=== PATIENT | female | born 1945 | race African-American/Black ===

== ENCOUNTER → 2018-05-06 | Outpatient (CLI) | payer MEDICARE ==
--- NOTE | 2018-05-06 17:02 | BD ---
EXAMINATION TYPE: Axial Bone Density DATE OF EXAM: 05/06/2018 COMPARISON: NONE CLINICAL HISTORY: Height: 64.5 Weight: 219.5 FRAX RISK QUESTIONS: Alcohol (3 or more units per day): no Family History (Parent hip fracture): no Glucocorticoids (More than 3mos): no (Ex: prednisone, prednisolone, methylprednisolone, dexamethasone, and hydrocortisone). History of Fracture in Adulthood: no Secondary Osteoporosis: 1. Type 1 Diabetes: no 2. Hyperthyroidism: no 3. Menopause before 45: no 4. Malnutrition: no 5. Chronic liver disease: no Rheumatoid Arthritis: no Current Tobacco Use: yes RISK FACTORS HISTORY OF: Family History of Osteoporosis: no Active: yes Diet low in dairy products/other sources of calcium: yes Postmenopausal woman: around age 51 Lost more than 2 inches in height since high school: no MEDICATIONS: hydrocodone, naproxen, amlodipine, zantac Additional History: EXAM MEASUREMENTS: Bone mineral densitometry was performed using the [employer] System. Bone mineral density as measured about the Lumbar spine is: ----- L1-L4(G/cm2): 1.130 T Score Values are as follows: ----- L2: 0.8 ----- L3: 0.2 ----- L4: -0.9 ----- L1-L4: -0.4 Bone mineral density : baseline Bone mineral density about the R hip (g/cm2): 0.917 Bone mineral density about the L hip (g/cm2): 0.966 T Score values are as follows: -----R Neck: -0.9 -----L Neck: -0.5 -----R Total: -1.7 -----L Total: -1.2 Bone mineral density : baseline IMPRESSION: Normal (Values between +1 and -1 indicate normal bone mass). Consider repeating this study in 5 years or sooner if there is some new clinical indication. NOTE: T-SCORE=SD OF THE YOUNG ADULT MEAN.
== END | disposition home or self-care (01) ==
LOC: RADBDWWP 14:00
PROVIDERS: ATTEND Family Medicine
DX: Z13.820 Encounter for screening for osteoporosis (principal)
CPT/HCPCS: 77080

== ENCOUNTER → 2021-01-27 | Outpatient (CLI) | payer MEDICARE ==
--- NOTE | 2021-01-28 06:16 | MR ---
EXAMINATION TYPE: MR brain and iac wo/w con DATE OF EXAM: 01/27/2021 COMPARISON: None HISTORY: Ringing in Left Ear CONTRAST: Standard multiplanar, multisequence MRI departmental protocol utilizing 10ml mL intravenous Gadavist gadolinium contrast. There is some cerebral cortical atrophy. There is no mass effect nor midline shift. There is no evide nce of intracranial hemorrhage. Diffusion images show no evidence of an acute infarct. On the T2 and FLAIR images there are a few scattered areas of increased signal in the periventricular white matter. These are somewhat peripheral at the baxter-white matter junction and measure up to 5 mm. Total number is approximately 15. The brainstem is intact. Cerebellum is intact. Corpus callosum is intact. There is no evidence of a s ellar mass. The internal auditory canals appear normal. The acoustic nerve and vestibular nerves appear normal. T here is normal signal pattern in the mastoid sinuses. There is no sign of mastoiditis. There is no ev idence of cerebellopontine angle mass. The contrast images show no pathologic enhancement. There is normal enhancement of the venous sinuses . IMPRESSION: There are scattered white matter foci that are nonspecific and could relate to microvascular ischemia and less likely demyelinating disease. No evidence of cortical infarct. No evidence of focal posterior fossa abnormality. Mild cerebral atrophy.
== END | disposition home or self-care (01) ==
LOC: RADMRIMAIN 15:47
PROVIDERS: ATTEND Otolaryngology
DX: D35.6 Benign neoplasm of aortic body and other paraganglia (principal)
CPT/HCPCS: 70553; A9585

== ENCOUNTER 2021-06-17 09:39 | Inpatient (IN) | payer MEDICARE ==
[2021-06-17] MEDS ORDERED: PANTOPRAZOLE 40 MG/10 ML VIAL IVP STA (10:49)
[2021-06-17] MEDS ORDERED: ONDANSETRON 4 MG/2 ML VIAL IVP STA (10:49)
[2021-06-17] MEDS ORDERED: SODIUM CHLORIDE 0.9% 2,000 ML IV ONE (10:49)
--- NOTE | 2021-06-17 10:54 | ED ---
General Adult HPI - General Chief complaint: GI Bleed Stated complaint: hematemesis, weakness Time Seen by Provider: 06/17/21 10:15 Source: patient, family, police, RN notes reviewed, old records reviewed Mode of arrival: ambulatory Limitations: no limitations - History of Present Illness Initial comments: This is a 76-year-old female who presents to the emergency department coming in because she has had bright red blood per rectum as well as from vomiting. Patient states his been vomiting all night long and has been bright red blood. Patient denies any blood thinners. Patient denies any similar symptoms in the past. Patient denies any drinking history. Patient stated all night long she didn't have much abdominal pain but over the last couple of hours she has quite a bit of Epigastric abdominal pain. Patient denies any chest pain or difficulty breathing. Patient does feel lightheaded and tired. - Related Data Home Medications Medication Instructions Recorded Confirmed Albuterol Sulfate [Albuterol 2 puff PO RT-Q4H PRN 06/17/21 06/17/21 Sulfate Hfa] HYDROcodone/APAP 10-325MG [[place] 1 tab PO BID PRN 06/17/21 06/17/21 10-325] Naproxen 500 mg PO BID PRN 06/17/21 06/17/21 Omeprazole [PriLOSEC] 40 mg PO DAILY 06/17/21 06/17/21 amLODIPine [Norvasc] 10 mg PO Q48H 06/17/21 06/17/21 Allergies Allergy/AdvReac Type Severity Reaction Status Date / Time No Known Allergies Allergy Verified 06/17/21 13:07 Review of Systems ROS Statement: Those systems with pertinent positive or pertinent negative responses have been documented in the HPI. ROS Other: All systems not noted in ROS Statement are negative. Past Medical History Past Medical History: GERD/Reflux, Hypertension History of Any Multi-Drug Resistant Organisms: None Reported Past Surgical History: No Surgical Hx Reported Smoking Status: Current every day smoker Past Alcohol Use History: None Reported Past Drug Use History: None Reported General Exam - General Exam Comments Initial Comments: GENERAL: Patient is well-developed and well-nourished. Patient is nontoxic and well- hydrated and is in moderate distress. ENT: Neck is soft and supple. No significant lymphadenopathy is noted. Oropharynx is clear. Moist mucous membranes. Neck has full range of motion without eliciting any pain. EYES: The sclera were anicteric and conjunctiva were pink and moist. Extraocular movements were intact and pupils were equal round and reactive to light. Eyelids were unremarkable. PULMONARY: Unlabored respirations. Good breath sounds bilaterally. No audible rales rhonchi or wheezing was noted. CARDIOVASCULAR: Patient is tachycardic at about 110 bpm. ABDOMEN: Patient has epigastric abdominal pain SKIN: Skin is clear with no lesions or rashes and otherwise unremarkable. NEUROLOGIC: Patient is alert and oriented x3. Cranial nerves II through XII are grossly intact. Motor and sensory are also intact. Normal speech, volume and content. Symmetrical smile. MUSCULOSKELETAL: Normal extremities with adequate strength and full range of motion. LYMPHATICS: No significant lymphadenopathy is noted PSYCHIATRIC: Normal psychiatric evaluation. Limitations: no limitations Course Vital Signs 06/17/21 06/17/21 06/17/21 10:16 10:48 12:43 Temperature 98 F Pulse Rate 110 H 107 H 85 Respiratory 18 16 18 Rate Blood Pressure 85/44 102/81 96/61 O2 Sat by Pulse 100 100 100 Oximetry Medical Decision Making - Medical Decision Making EKG shows atrial fibrillation with rapid ventricular response at 105 bpm there is no ST segment elevation or depression noted. QRS is 81 QT interval 351 QTC is 412. I spoke with Dr. Dawson he agreed to admit the patient admitted the patient I wrote admitting orders I consulted Dr. Bailey. I repeated CBCs in house. - Lab Data Result diagrams: 06/17/21 11:08 06/17/21 11:08 Lab Results 06/17/21 06/17/21 06/17/21 Range/Units 10:45 11:00 11:08 WBC 11.9 H (3.8-10.6) k/uL RBC 4.65 (3.80-5.40) m/uL Hgb 13.2 (11.4-16.0) gm/dL Hct 39.7 (34.0-46.0) % MCV 85.4 (80.0-100.0) fL MCH 28.3 (25.0-35.0) pg MCHC 33.2 (31.0-37.0) g/dL RDW 14.1 (11.5-15.5) % Plt Count 303 (150-450) k/uL MPV 7.5 Neutrophils % 76 % Lymphocytes % 16 % Monocytes % 5 % Eosinophils % 0 % Basophils % 0 % Neutrophils # 9.1 H (1.3-7.7) k/uL Lymphocytes # 1.9 (1.0-4.8) k/uL Monocytes # 0.6 (0-1.0) k/uL Eosinophils # 0.0 (0-0.7) k/uL Basophils # 0.1 (0-0.2) k/uL PT (9.0-12.0) sec INR (<1.2) APTT (22.0-30.0) sec Sodium (137-145) mmol/L Potassium (3.5-5.1) mmol/L Chloride (98-107) mmol/L Carbon Dioxide (22-30) mmol/L Anion Gap mmol/L BUN (7-17) mg/dL Creatinine (0.52-1.04) mg/dL Est GFR (CKD-EPI)AfAm (>60 ml/min/1.73 sqM) Est GFR (CKD-EPI)NonAf (>60 ml/min/1.73 sqM) Glucose (74-99) mg/dL Plasma Lactic Acid Matt (0.7-2.0) mmol/L Calcium (8.4-10.2) mg/dL Magnesium (1.6-2.3) mg/dL Total Bilirubin (0.2-1.3) mg/dL AST (14-36) U/L ALT (4-34) U/L Alkaline Phosphatase (38-126) U/L Troponin I (0.000-0.034) ng/mL Total Protein (6.3-8.2) g/dL Albumin (3.5-5.0) g/dL Lipase (23-300) U/L Blood Type O Positive Blood Type Confirm O Positive Blood Type Recheck No Previous Record Bld Type Recheck Status CABO Indicated Antibody Screen NEGATIVE Spec Expiration Date 06/20/2021230706/17/21 06/17/21 06/17/21 Range/Units 11:08 11:08 11:08 WBC (3.8-10.6) k/uL RBC (3.80-5.40) m/uL Hgb (11.4-16.0) gm/dL Hct (34.0-46.0) % MCV (80.0-100.0) fL MCH (25.0-35.0) pg MCHC (31.0-37.0) g/dL RDW (11.5-15.5) % Plt Count (150-450) k/uL MPV Neutrophils % % Lymphocytes % % Monocytes % % Eosinophils % % Basophils % % Neutrophils # (1.3-7.7) k/uL Lymphocytes # (1.0-4.8) k/uL Monocytes # (0-1.0) k/uL Eosinophils # (0-0.7) k/uL Basophils # (0-0.2) k/uL PT 11.1 (9.0-12.0) sec INR 1.0 (<1.2) APTT 25.0 (22.0-30.0) sec Sodium 140 (137-145) mmol/L Potassium 4.1 (3.5-5.1) mmol/L Chloride 106 (98-107) mmol/L Carbon Dioxide 24 (22-30) mmol/L Anion Gap 10 mmol/L BUN 47 H (7-17) mg/dL Creatinine 1.08 H (0.52-1.04) mg/dL Est GFR (CKD-EPI)AfAm 59 (>60 ml/min/1.73 sqM) Est GFR (CKD-EPI)NonAf 51 (>60 ml/min/1.73 sqM) Glucose 134 H (74-99) mg/dL Plasma Lactic Acid Matt (0.7-2.0) mmol/L Calcium 9.9 (8.4-10.2) mg/dL Magnesium 1.9 (1.6-2.3) mg/dL Total Bilirubin 0.7 (0.2-1.3) mg/dL AST 19 (14-36) U/L ALT 17 (4-34) U/L Alkaline Phosphatase 95 (38-126) U/L Troponin I 0.014 (0.000-0.034) ng/mL Total Protein 7.7 (6.3-8.2) g/dL Albumin 4.1 (3.5-5.0) g/dL Lipase 43 (23-300) U/L Blood Type Blood Type Confirm Blood Type Recheck Bld Type Recheck Status Antibody Screen Spec Expiration Date 06/17/21 Range/Units 11:08 WBC (3.8-10.6) k/uL RBC (3.80-5.40) m/uL Hgb (11.4-16.0) gm/dL Hct (34.0-46.0) % MCV (80.0-100.0) fL MCH (25.0-35.0) pg MCHC (31.0-37.0) g/dL RDW (11.5-15.5) % Plt Count (150-450) k/uL MPV Neutrophils % % Lymphocytes % % Monocytes % % Eosinophils % % Basophils % % Neutrophils # (1.3-7.7) k/uL Lymphocytes # (1.0-4.8) k/uL Monocytes # (0-1.0) k/uL Eosinophils # (0-0.7) k/uL Basophils # (0-0.2) k/uL PT (9.0-12.0) sec INR (<1.2) APTT (22.0-30.0) sec Sodium (137-145) mmol/L Potassium (3.5-5.1) mmol/L Chloride (98-107) mmol/L Carbon Dioxide (22-30) mmol/L Anion Gap mmol/L BUN (7-17) mg/dL Creatinine (0.52-1.04) mg/dL Est GFR (CKD-EPI)AfAm (>60 ml/min/1.73 sqM) Est GFR (CKD-EPI)NonAf (>60 ml/min/1.73 sqM) Glucose (74-99) mg/dL Plasma Lactic Acid Matt 2.4 H* (0.7-2.0) mmol/L Calcium (8.4-10.2) mg/dL Magnesium (1.6-2.3) mg/dL Total Bilirubin (0.2-1.3) mg/dL AST (14-36) U/L ALT (4-34) U/L Alkaline Phosphatase (38-126) U/L Troponin I (0.000-0.034) ng/mL Total Protein (6.3-8.2) g/dL Albumin (3.5-5.0) g/dL Lipase (23-300) U/L Blood Type Blood Type Confirm Blood Type Recheck Bld Type Recheck Status Antibody Screen Spec Expiration Date Disposition Clinical Impression: GI bleed, Near syncope, Atrial fibrillation Disposition: ADMITTED IP TO THIS HOSP Time of Disposition: 12:33
[2021-06-17 11:22] LABS: Basophils # (A) 0.1 k/uL (0-0.2); Basophils % (A) 0 %; Eosinophils % (A) 0 %; HCT 39.7 % (34.0-46.0); HGB 13.2 gm/dL (11.4-16.0); Lymphocytes # (A) 1.9 k/uL (1.0-4.8); Lymphocytes % (A) 16 %; MCH 28.3 pg (25.0-35.0); MCHC 33.2 g/dL (31.0-37.0); MCV 85.4 fL (80.0-100.0); Mean Platelet Volume 7.5; Monocytes # (A) 0.6 k/uL (0-1.0); Monocytes % (A) 5 %; Neutrophils # (A) 9.1 k/uL (1.3-7.7); Neutrophils % (A) 76 %; Platelet Count 303 k/uL (150-450); RBC 4.65 m/uL (3.80-5.40); RDW 14.1 % (11.5-15.5); WBC 11.9 k/uL (3.8-10.6)
[2021-06-17 11:31] LABS: Prothrombin Time 11.1 sec (9.0-12.0)
[2021-06-17 11:32] LABS: Albumin 4.1 g/dL (3.5-5.0); Calcium 9.9 mg/dL (8.4-10.2); Magnesium 1.9 mg/dL (1.6-2.3); Potassium 4.1 mmol/L (3.5-5.1); Total Bilirubin 0.7 mg/dL (0.2-1.3); Total Protein 7.7 g/dL (6.3-8.2)
[2021-06-17] MEDS ORDERED: HYDROmorphone 1 MG/ML 1 ML SYRINGE IVP STA (11:54)
--- NOTE | 2021-06-17 12:15 | CT ---
EXAMINATION TYPE: CT abdomen pelvis w con DATE OF EXAM: 06/17/2021 HISTORY: Pain, hematemesis, weakness CT DLP: 1178.2mGycm Automated Exposure Control for Dose Reduction was Utilized. CONTRAST: CT scan of the abdomen and pelvis is performed without oral but with IV Contrast, patient injected wi th 80 mL of Isovue 300. COMPARISON: None. FINDINGS: LUNG BASES: Mild left basilar linear scarring and/or atelectasis. LIVER/GB: No significant abnormality is appreciated. PANCREAS: No significant abnormality is seen. SPLEEN: No significant abnormality is seen. ADRENALS: No significant abnormality is seen. KIDNEYS: No significant abnormality is seen. BOWEL: Suboptimal evaluation of bowel without enteric contrast. No suspicious small or large bowel di latation is seen. Single diverticulum in the sigmoid colon axial image 68. UTERUS/ADNEXA: Uterus surgically absent or markedly atrophic. Single left-sided pelvic phlebolith. LYMPH NODES: No greater than 1cm abdominal or pelvic lymph nodes are appreciated. OSSEOUS STRUCTURES: No significant abnormality is seen. OTHER: No [id number] peripheral plaque of the aorta extends into branch vessels with ectasia up to 2.9 cm axial image 43. No greater than 3.0 cm aneurysm. Poor enhancement due to delayed imaging. No obvious significant stenosis. IMPRESSION: A few scattered colonic diverticula. No convincing CT evidence for acute diverticulitis. No bowel obstruction. No acute findings clearly evident.
[2021-06-17] MEDS ORDERED: SODIUM CHLORIDE 0.9% 1,000 ML IV ONE (12:33)
[2021-06-17] MEDS ORDERED: NALOXONE 0.4 MG/ML 1 ML VIAL IV PRN (13:22)
[2021-06-17] MEDS ORDERED: ALPRAZolam 0.25 MG TAB PO PRN (13:22)
[2021-06-17] MEDS ORDERED: CALCIUM CARBONATE 500 MG CHEWABLE PO PRN (13:22)
[2021-06-17] MEDS ORDERED: MELATONIN 3 MG TABLET PO PRN (13:22)
[2021-06-17] MEDS ORDERED: LACTULOSE 20 GM/30 ML CUP PO PRN (13:22)
[2021-06-17] MEDS: NICOTINE 21MG/24HR PATCH TRANSDERM SCH (14:31)
--- NOTE | 2021-06-17 14:37 | P.CONS ---
History of Present Illness - Reason for Consult Consult date: 06/17/21 GI bleed, abdominal pain Requesting physician: Eric Angulo - Chief Complaint Nausea vomiting, hematemesis, abdominal pain - History of Present Illness This is 76-year-old -[place] woman who presented to the emergency department after calling her daughters with complaints of burning in her epigastric region, followed by 5 episodes of emesis yesterday which they state was maroon colored and dark. She also has had dark black stools. Patient states that she does take naproxen she is also on omeprazole. Denies any anticoagulation. She has no prior history of an EGD for peptic ulcer disease. Last colonoscopy was approximately 5 years ago and states it was normal. On admission she was found to be hypotensive and tachycardic. She was given 2 L of fluid and stabilized. Labs WBC 11.9 hemoglobin 13.2 hematocrit 39 platelet count 303,000 INR 1.0, V1 47 total bilirubin 0.7 AST 19 ALT 17 alkaline phosphatase 95, lipase 43 lactic acid 2.4 3 pain has improved as well as the nausea and vomiting. CT scan abdomen and pelvis show a few scattered colonic di verticula. No convincing CT evidence for acute diverticulitis. No bowel obstruction. No acute findings clearly evident. Patient had EKG also with evidence of new onset atrial fibrillation. Review of Systems REVIEW OF SYSTEMS: CARDIOPULMONARY: No chest pain or shortness of breath. Gastrointestinal: Burning sensation in epigastric region, no associated abdominal pain. Nausea and vomiting associated with hematemesis. Back tarry stool. GENITOURINARY: No dysuria or hematuria. MUSCULOSKELETAL: Reports normal range of motion., Joint pain. SKIN: No rashes. No jaundice. ENDOCRINE: No chills, fevers. No excessive weight gain or loss. No polydipsia or polyuria. PSYCHIATRIC: Unremarkable. NEUROLOGY: No change in mental status. Denies dizziness, headache. ENT: Vision unremarkable. CONSTITUTIONAL: No recent weight loss. No fever, chills, night sweats. Past Medical History Past Medical History: GERD/Reflux, Hypertension History of Any Multi-Drug Resistant Organisms: None Reported Past Surgical History: No Surgical Hx Reported Smoking Status: Current every day smoker Past Alcohol Use History: None Reported Past Drug Use History: None Reported Medications and Allergies Home Medications Medication Instructions Recorded Confirmed Type Albuterol Sulfate [Albuterol 2 puff PO RT-Q4H PRN 06/17/21 06/17/21 History Sulfate Hfa] HYDROcodone/APAP 10-325MG [[place] 1 tab PO BID PRN 06/17/21 06/17/21 History 10-325] Naproxen 500 mg PO BID PRN 06/17/21 06/17/21 History Omeprazole [PriLOSEC] 40 mg PO DAILY 06/17/21 06/17/21 History amLODIPine [Norvasc] 10 mg PO Q48H 06/17/21 06/17/21 History Allergies Allergy/AdvReac Type Severity Reaction Status Date / Time No Known Allergies Allergy Verified 06/17/21 13:07 Physical Exam Vitals: Vital Signs Temp Pulse Resp BP Pulse Ox 06/17/21 12:43 85 18 96/61 100 06/17/21 10:48 107 H 16 102/81 100 06/17/21 10:16 98 F 110 H 18 85/44 100 Intake and Output 06/16/21 06/17/21 06/17/21 22:59 06:59 14:59 Other: Weight 95.254 kg General appearance: The patient is alert, oriented, appears in no acute distress. HET: Head is normocephalic and atraumatic. Conjunctiva pink. Sclera anicteric. Neck: Supple without lymphadenopathy. Trachea midline. Heart: S1 S2. Regular rate and rhythm. Lungs: Clear to auscultation. Abdomen: Soft, tenderness epigastric region, nondistended with bowel sounds. No guarding or rigidity. Skin: No rashes. No jaundice. Extremities: Normal skin color and turgor. No pedal edema. Neurological: No focal deficits. Alert and oriented x3. Results CBC & Chem 7: 06/17/21 11:08 06/17/21 11:08 Labs: Abnormal Lab Results - Last 24 Hours (Table) 06/17/21 06/17/21 06/17/21 Range/Units 11:08 11:08 11:08 WBC 11.9 H (3.8-10.6) k/uL Neutrophils # 9.1 H (1.3-7.7) k/uL BUN 47 H (7-17) mg/dL Creatinine 1.08 H (0.52-1.04) mg/dL Glucose 134 H (74-99) mg/dL Plasma Lactic Acid Matt 2.4 H* (0.7-2.0) mmol/L Comments: CT scan abdomen and pelvis show a few scattered colonic diverticula. No convincing CT evidence for acute diverticulitis. No bowel obstruction. No acute findings clearly evident. Assessment and Plan (1) GI bleed Narrative/Plan: 76-year-old female who presented to the emergency department with complaints of nausea and vomiting several times through the night. States she had multiple ep isodes of bright and dark red emesis. Initially no associated abdominal pain but that she started having a burning sensation along her epigastric region. She has no previous history of peptic ulcer disease and no previous EGD. She did have a colonoscopy approximately 5 years ago according to her daughters which they state was normal. And no prior history of GI bleed. She does take naproxen daily. Possible etiologies for likely upper GI bleed include AVM, gastritis, esophagitis, peptic ulcer disease or other possible etiologies. Will proceed with EGD tomorrow. Current Visit: Yes Status: Acute Code(s): K92.2 - GASTROINTESTINAL HEMORRHAGE, UNSPECIFIED SNOMED Code(s): 82212741 Plan: 1. Continue symptomatic and supportive care 2. Hold NSAIDs 3. Repeat daily CBC, transfuse per protocol 4. Protonix 40 mg twice a day 5. Patient may have clear liquid diet, nothing by mouth after midnight 6. Will proceed with EGD tomorrow. Procedure discussed with patient and her daughters including risks and benefits, patient is willing to proceed. Thank you for this consultation, we will continue to follow. Dr. Dianne Arreaga I agree with the dictator's note, documented as a scribe by Wendy Lopez.
--- NOTE | 2021-06-17 15:07 | P.HPIM ---
History of Present Illness H&P Date: 06/17/21 Chief Complaint: Vomiting blood This is a pleasant 76-year-old patient who follows with Dr. Fung. Chronic stable medical conditions include nicotine dependence, arthritis, GERD, hypertension, COPD. Patient is accompanied by HER-2 daughters at the bedside in the ER. Patient presents with started vomiting had several bouts of vomiting significant amount of blood. Having upper abdominal discomfort. No prior history of GI bleed. Patient does take naproxen and smoke cigarettes. Does feel tired and rundown. At the baseline assessments some shortness of breath and wheezing. Patient seen by Dr. Dianne Arreaga's team in the ER planning for EGD tomorrow. No prior history of EGD. Review of systems: GEN.: Tired EYES: None HEENT: None NECK: None RESPIRATORY: Short of breath wheezing CARDIOVASCULAR: None GASTROINTESTINAL: As above GENITOURINARY: None MUSCULOSKELETAL: Pain in different joints pretty lower back LYMPHATICS: None HEMATOLOGICAL: None PSYCHIATRY: None NEUROLOGICAL: None Past medical history to include: GERD, hypertension, arthritis lower back of the joints, COPD Social history: Does not drink alcohol. Lives alone. Used to work at [employer]. Smoking a pack a day for last 60 years. Family history: Reviewed, noncontributory to presentation Physical examination: VITAL SIGNS: 98, 110, 18, 85/44, 100% room air GENERAL: BMI 34.9, laying in bed, awake, bit tired. EYES: Pupils equal. Conjunctiva normal. HEENT: External appearance of nose and ears normal, oral cavity grossly normal. NECK: JVD not raised; masses not palpable. HEART: First and second heart sounds are normal; no edema. LUNGS: Respiratory rate increased; decreased breath sounds or wheezing. ABDOMEN: Soft, mild epigastric tenderness, liver spleen not palpable, no masses palpable. PSYCH: Alert and oriented x3; mood and affect bit anxiousl. MUSCULOSKELETAL:No Clubbing/cyanosis;muscles-grossly intact. Evidence of OA especially in the hands NEUROLOGICAL: Cranial nerves grossly intact; no facial asymmetry, power and sensation grossly intact. LYMPHATICS: No lymph nodes palpable in the axilla and neck INVESTIGATIONS, reviewed in the clinical context: White count 11.9 hemoglobin 13.2 platelets 303 potassium 4.1. 47 creatinine 1.08 lactic acid 2.4 troponin I less than 0.014 EKG tracing personally reviewed by me-normal sinus rhythm Assessment and plan: -Acute upper GI bleed with several bouts of vomiting in a patient takes naproxen for arthritis and also is a smoker. Suspect gastritis peptic ulcer disease. GI consulted. 4 upper GI tomorrow. PPI. Stop naproxen -Obesity BMI 34.9 Weight loss measures -Essential hypertension Blood pressure running on the lower side hold off any antihypertensive -Hypotension from blood loss Follow vital signs closely -GERD PPI -COPD in a current smoker DuoNeb -Chronic nicotine dependence, cigarettes smoker Nicotine patch -Primary osteoarthritis multiple joints including lower back Tylenol when necessary. K pack Hold off antihypertensives. Follow H&H. Nicotine patch. EPI. IV fluids. Consult GI. Care was discussed with the patient daughter is at the bedside. Questions answered. Given the complexity and severity of patient's condition expect the patient to be in the hospital at least for 2 overnights Smoke cessation counseling: This was done with the patient. Nicotine patch is being given. More than 3 minutes was spent for this Past Medical History Past Medical History: GERD/Reflux, Hypertension History of Any Multi-Drug Resistant Organisms: None Reported Past Surgical History: No Surgical Hx Reported Smoking Status: Current every day smoker Past Alcohol Use History: None Reported Past Drug Use History: None Reported Medications and Allergies Home Medications Medication Instructions Recorded Confirmed Type Albuterol Sulfate [Albuterol 2 puff PO RT-Q4H PRN 06/17/21 06/17/21 History Sulfate Hfa] HYDROcodone/APAP 10-325MG [[place] 1 tab PO BID PRN 06/17/21 06/17/21 History 10-325] Naproxen 500 mg PO BID PRN 06/17/21 06/17/21 History Omeprazole [PriLOSEC] 40 mg PO DAILY 06/17/21 06/17/21 History amLODIPine [Norvasc] 10 mg PO Q48H 06/17/21 06/17/21 History Allergies Allergy/AdvReac Type Severity Reaction Status Date / Time No Known Allergies Allergy Verified 06/17/21 13:07 Physical Exam Vitals: Vital Signs Temp Pulse Resp BP Pulse Ox 06/17/21 12:43 85 18 96/61 100 06/17/21 10:48 107 H 16 102/81 100 06/17/21 10:16 98 F 110 H 18 85/44 100 Intake and Output 06/16/21 06/17/21 06/17/21 22:59 06:59 14:59 Other: Weight 95.254 kg Results CBC & Chem 7: 06/17/21 11:08 06/17/21 11:08 Labs: Abnormal Lab Results - Last 24 Hours (Table) 06/17/21 06/17/21 06/17/21 Range/Units 11:08 11:08 11:08 WBC 11.9 H (3.8-10.6) k/uL Neutrophils # 9.1 H (1.3-7.7) k/uL BUN 47 H (7-17) mg/dL Creatinine 1.08 H (0.52-1.04) mg/dL Glucose 134 H (74-99) mg/dL Plasma Lactic Acid Matt 2.4 H* (0.7-2.0) mmol/L
[2021-06-17] MEDS: IPRATROPIUM-ALBUTEROL 3 ML NEB INHALATION SCH ×2 (15:58→20:03)
--- NOTE | 2021-06-17 17:59 | XR ---
EXAMINATION TYPE: XR chest 2V DATE OF EXAM: 06/17/2021 COMPARISON: NONE HISTORY: Short of breath TECHNIQUE: 2 views FINDINGS: Heart is normal. Lungs are clear of infiltrate. There is no heart failure. There are no hil ar masses. Bony thorax is intact. Pulmonary vascularity is normal. IMPRESSION: No active cardiopulmonary disease. Normal heart.
[2021-06-17 18:15] LABS: Basophils % (A) 0 %; Eosinophils # (A) 0.1 k/uL (0-0.7); Eosinophils % (A) 1 %; HCT 37.8 % (34.0-46.0); HGB 11.7 gm/dL (11.4-16.0); Hypochromasia Marked; Lymphocytes # (A) 2.1 k/uL (1.0-4.8); Lymphocytes % (A) 20 %; MCH 28.4 pg (25.0-35.0); MCHC 30.9 g/dL (31.0-37.0); MCV 91.9 fL (80.0-100.0); Mean Platelet Volume 7.6; Monocytes # (A) 0.7 k/uL (0-1.0); Monocytes % (A) 6 %; Neutrophils # (A) 7.2 k/uL (1.3-7.7); Neutrophils % (A) 70 %; Platelet Count 173 k/uL (150-450); RBC 4.11 m/uL (3.80-5.40); RDW 14.1 % (11.5-15.5); WBC 10.2 k/uL (3.8-10.6)
[2021-06-17] MEDS: ACETAMINOPHEN TAB 325 MG TAB PO PRN (22:32)
[2021-06-17] MEDS: PANTOPRAZOLE 40 MG/10 ML VIAL IVP SCH (22:33)
[2021-06-18 06:05] LABS: Basophils % (A) 0 %; Eosinophils % (A) 0 %; HCT 32.3 % (34.0-46.0); HGB 10.6 gm/dL (11.4-16.0); Lymphocytes % (A) 26 %; MCH 28.6 pg (25.0-35.0); MCHC 32.8 g/dL (31.0-37.0); MCV 87.2 fL (80.0-100.0); Monocytes # (A) 0.5 k/uL (0-1.0); Monocytes % (A) 7 %; Neutrophils # (A) 4.9 k/uL (1.3-7.7); Neutrophils % (A) 65 %; Platelet Count 182 k/uL (150-450); RDW 13.7 % (11.5-15.5); WBC 7.6 k/uL (3.8-10.6)
[2021-06-18] MEDS: ACETAMINOPHEN TAB 325 MG TAB PO PRN (06:14)
[2021-06-18 06:22] LABS: African American GFR (CKD) 86 (>60 ml/min/1.73 sqM); Anion Gap 4 mmol/L; Blood Urea Nitrogen 26 mg/dL (7-17); Calcium 8.9 mg/dL (8.4-10.2); Carbon Dioxide 23 mmol/L (22-30); Chloride 113 mmol/L (98-107); Glucose 105 mg/dL (74-99); Non-African American GFR(CKD) 75 (>60 ml/min/1.73 sqM); Potassium 3.5 mmol/L (3.5-5.1); Sodium 140 mmol/L (137-145)
[2021-06-18] MEDS: NICOTINE 21MG/24HR PATCH TRANSDERM SCH (08:14)
[2021-06-18] MEDS: PANTOPRAZOLE 40 MG/10 ML VIAL IVP SCH (08:14)
[2021-06-18] MEDS: IPRATROPIUM-ALBUTEROL 3 ML NEB INHALATION SCH ×2 (08:21→11:49)
[2021-06-18] MEDS ORDERED: LIDOCAINE 1% INJ 10MG/ML (20 ML MDV) ONE (09:07)
[2021-06-18] MEDS ORDERED: PROPOFOL 10 MG/ML 20 ML VIAL IV ONE (09:07)
[2021-06-18] MEDS ORDERED: SODIUM CHLORIDE 0.9% 500 ML 500 ML IV ONE (09:23)
--- NOTE | 2021-06-18 09:24 | P.PCN ---
Date of Procedure: 06/18/21 Procedure(s) Performed: BRIEF HISTORY: Patient is a 76-year-old, pleasant, -Tog[place] female admitted hospital with acute upper GI bleed. She had 3 episodes of hematemesis yesterday. His initial hemoglobin was 13 and subsequently dropped to 10.5 g/dL. She is scheduled for an upper endoscopy to evaluate further. PROCEDURE PERFORMED: Esophagogastroduodenoscopy . PREOPERATIVE DIAGNOSIS: Acute upper GI bleed. IV sedation per anesthesia. PROCEDURE: After informed consent was obtained, the patient was brought into the endoscopy unit. IV sedation was administered by Anesthesia under continuous monitoring. Initially the Olympus GIF-140 video endoscope was inserted into the mouth. Esophagus intubated without any difficulty. It was gradually advanced into the stomach and duodenum and carefully examined. The bulb and the second part of the duodenum appeared normal. The scope at this time was withdrawn to the stomach, adequately insufflated with air, and upon careful examination, mucosa of the antrum, body, cardia and the fundus appeared normal. The scope was then withdrawn into the esophagus. The GE junction was located at 39 cm from the incisors. Small hiatal hernia noted. There was a linear Sherice-Murphy tearGE junction extending 2 cm in length with no active bleeding. Also there were erosions in the distal esophagus with LA grade B reflux esophagitis. The rest of esophagus appeared normal and the patient tolerated the procedure well. IMPRESSION: 1. Sherice-Murphy tear at the GE junction was no active bleeding. 2. Small hiatal hernia and LA grade B reflux esophagitis. RECOMMENDATIONS: The findings of this examination were discussed with the patient as well as her family. She diet will be advanced as tolerated. Continue with Protonix 40 mg twice daily. She can be discharged home today outpatient follow-up in 4 weeks.
[2021-06-18 11:55] VITALS: RESP 18
[2021-06-18 14:30] VITALS: BP 102/71; PULSE 120; TEMP 98.2
--- NOTE | 2021-06-18 15:43 | P.DS ---
Providers Date of admission: 06/17/21 12:33 Expected date of discharge: 06/18/21 Attending physician: Bandar Dawson Consults: 06/17/21 12:33 Consult Physician Urgent Consulting Provider: Clarisse Arreaga Consult Reason/Comments: GI bleed Do you want consulting provider notified?: Yes Primary care physician: [facility] Course: Chief Complaint: Vomiting blood This is a pleasant 76-year-old patient who follows with Dr. Fung. Chronic stable medical conditions include nicotine dependence, arthritis, GERD, hypertension, COPD. Patient is accompanied by HER-2 daughters at the bedside in the ER. Patient presents with started vomiting had several bouts of vomiting significant amount of blood. Having upper abdominal discomfort. No prior history of GI bleed. Patient does take naproxen and smoke cigarettes. Does feel tired and rundown. At the baseline assessments some shortness of breath and wheezing. Patient seen by Dr. Dianne Arreaga's team in the ER planning for EGD tomorrow. No prior history of EGD. June 18: EGD by Dr. Dianne Arreaga showed Sherice-Murphy tear and GE junction and no active bleeding. As a grade B reflux esophagitis. Discussed with patient about discontinuation of NSAIDs. Patient uses heating pad Tylenol. PPI. Smoking cessation discussed again. Both daughters at the bedside. Sinus tachycardia felt to be from anemia. From acute blood loss Discussion and discharge planning more than 35 minutes Past medical history to include: GERD, hypertension, arthritis lower back of the joints, COPD Social history: Does not drink alcohol. Lives alone. Used to work at [employer]. Smoking a pack a day for last 60 years. Family history: Reviewed, noncontributory to presentation Physical examination: VITAL SIGNS: 98.2, 120, 18, 102 with 71, 98% room air GENERAL: Laying in bed, awake, comfortable EYES: Pupils equal. Conjunctiva normal. HEENT: External appearance of nose and ears normal, oral cavity grossly normal. NECK: JVD not raised; masses not palpable. HEART: First and second heart sounds are normal; no edema. LUNGS: Respiratory rate increased; decreased breath sounds or wheezing. ABDOMEN: Soft, mild epigastric tenderness, liver spleen not palpable, no masses palpable. PSYCH: Alert and oriented x3; mood and affect bit anxiousl. MUSCULOSKELETAL:No Clubbing/cyanosis;muscles-grossly intact. Evidence of OA especially in the hands INVESTIGATIONS, reviewed in the clinical context: June 18: Hemoglobin 10.6 creatinine 0.79 White count 11.9 hemoglobin 13.2 platelets 303 potassium 4.1. 47 creatinine 1.08 lactic acid 2.4 troponin I less than 0.014 EKG tracing personally reviewed by me-normal sinus rhythm Assessment and plan: -Acute upper GI bleed with several bouts of vomiting in a patient takes naproxen for arthritis and also is a smoker. Acute Sherice-Murphy tear Stop naproxen. PPI. -Acute blood loss anemia from GI bleed Indication for blood transfusion -Obesity BMI 34.9 Weight loss measures -Essential hypertension Blood pressure running on the lower side hold off any antihypertensive -Sinus tachycardia secondary to blood loss anemia -Hypotension from blood loss Follow vital signs closely -GERD PPI -COPD in a current smoker DuoNeb -Chronic nicotine dependence, cigarettes smoker Nicotine patch -Primary osteoarthritis multiple joints including lower back Tylenol when necessary. K pack Disposition: Home Plan - Discharge Summary Discharge Rx Participant: No New Discharge Prescriptions: New Nicotine 21Mg/24Hr Patch [Habitrol] 1 patch TRANSDERM DAILY #14 patch Continue HYDROcodone/APAP 10-325MG [[place] 10-325] 1 tab PO BID PRN PRN Reason: Pain Albuterol Sulfate [Albuterol Sulfate Hfa] 2 puff PO RT-Q4H PRN PRN Reason: Shortness Of Breath Changed Omeprazole [PriLOSEC] 40 mg PO BID #60 cap Discontinued Naproxen 500 mg PO BID PRN PRN Reason: Pain amLODIPine [Norvasc] 10 mg PO Q48H Discharge Medication List Albuterol Sulfate [Albuterol Sulfate Hfa] 2 puff PO RT-Q4H PRN 06/17/21 [History] HYDROcodone/APAP 10-325MG [[place] 10-325] 1 tab PO BID PRN 06/17/21 [History] Nicotine 21Mg/24Hr Patch [Habitrol] 1 patch TRANSDERM DAILY #14 patch 06/18/21 [Rx] Omeprazole [PriLOSEC] 40 mg PO BID #60 cap 06/18/21 [Rx] Follow up Appointment(s)/Referral(s): Rc Fung DO [Primary Care Provider] - 06/26/21 11:00 am Clarisse Arreaga MD [STAFF PHYSICIAN] - 2 Weeks (office closed at time of discharge. Please call to schedule appointment ) Patient Instructions/Handouts: Gastrointestinal Bleeding (DC) Discharge Disposition: HOME SELF-CARE
== END 2021-06-18 15:20 | disposition home or self-care (01) | DRG 368 ==
LOC: EC 09:39 → 4SSUR 12:33
PROVIDERS: ADMIT Hospitalist; ATTEND Hospitalist
PROC: 0DJ08ZZ Inspection of Upper Intestinal Tract, Via Natural or Artificial Opening Endoscopic (ICD-10-PCS; principal; 2021-06-18 13:30)
DX: K21.01 Gastro-esophageal reflux disease with esophagitis, with bleeding (principal); K22.6 Gastro-esophageal laceration-hemorrhage syndrome; D62 Acute posthemorrhagic anemia; Z68.34 Body mass index [BMI] 34.0-34.9, adult; E66.9 Obesity, unspecified; F17.210 Nicotine dependence, cigarettes, uncomplicated; I10 Essential (primary) hypertension; I48.91 Unspecified atrial fibrillation; J44.9 Chronic obstructive pulmonary disease, unspecified; K44.9 Diaphragmatic hernia without obstruction or gangrene; K57.30 Diverticulosis of large intestine without perforation or abscess without bleeding; M15.9 Polyosteoarthritis, unspecified; M47.816 Spondylosis without myelopathy or radiculopathy, lumbar region; Z79.899 Other long term (current) drug therapy; I95.9 Hypotension, unspecified; R00.0 Tachycardia, unspecified
CPT/HCPCS: 36415; 43235; 71046; 74177; 80048; 80053; 83605; 83690; 83735; 84484; 85025; 85610; 85730; 86850; 86900; 86901; 93005; 94640; 94760; 96361; 96374; 96375; 99285

== ENCOUNTER → 2023-10-12 | Outpatient (CLI) | payer MEDICARE ==
--- NOTE | 2023-10-12 14:12 | CT ---
EXAMINATION TYPE: CT brain wo con DATE OF EXAM: 10/12/2023 COMPARISON: None HISTORY: DIPLOPIA pt states she hears a thumping in her head CT DLP: 1195.[address] of the brain was performed. The ventricles, basal cisterns and sulci overlying the cerebral convexities demonstrate mild enlargem ent with a greater bilateral occipital lobe component.. There is no evidence for intracranial hemorrhage or sulcal effacement. There is decreased attenuation about the periventricular white matter and deep white matter of both c erebral hemispheres, compatible with chronic small vessel ischemia. Differential diagnosis does inclu de demyelination. No mass effects are seen.No midline shift. Osseous calvarium is intact. If symptoms persist consider MRI. IMPRESSION: 1. Age related atrophic and chronic small vessel ischemic change without acute intracranial process s een at this time.
--- NOTE | 2023-10-12 14:49 | XR ---
EXAMINATION TYPE: XR chest 2V DATE OF EXAM: 10/12/2023 COMPARISON: 06/17/2021 HISTORY: 78-year-old female H53.2 DIPLOPIA, R06.09 OTHER FORMS OF DYSPNEA TECHNIQUE: Frontal and lateral views FINDINGS: Heart upper limits of normal in size. Aorta and pulmonary vasculature within normal limits. Hazy lowe r lung densities related to overlying soft tissue. Mild hyperinflation. Some patchy opacity at the in ferior lingula/ cardiac apex. No other consolidation or pleural effusion. IMPRESSION: 1. Hyperinflation may relate to depth of inspiration or underlying emphysema. Clinically correlate. 2. Some focal patchy atelectasis versus developing infiltrate at the inferior lingula.
== END | disposition home or self-care (01) ==
LOC: RADCTMAIN 13:40
PROVIDERS: ATTEND Family Medicine
DX: I67.82 Cerebral ischemia (principal); H53.2 Diplopia; J43.8 Other emphysema; R06.09 Other forms of dyspnea
CPT/HCPCS: 70450; 71046; 84484

== ENCOUNTER 2024-09-09 14:17 | Emergency (ER) | payer MEDICARE ==
[2024-09-09 14:33] VITALS: TEMP 97.8
[2024-09-09] MEDS: SODIUM CHLORIDE 0.9% 1,000 ML IV ONE (15:10)
[2024-09-09] MEDS: MECLIZINE 12.5 MG TAB PO STA ×2 (15:11→19:11)
[2024-09-09] MEDS: methylPREDNISolone SOD SUCCI 125 MG/2 ML VIAL IV STA (15:11)
[2024-09-09] MEDS: ONDANSETRON 4 MG/2 ML VIAL IVP STA (15:11)
[2024-09-09 15:35] LABS: Basophils # (A) 0.01 10*3/uL (0.00-0.10); Basophils % (A) 0.1 %; HCT 45.4 % (37.2-46.3); HGB 15.3 g/dL (12.0-15.0); Lymphocytes # (A) 1.24 10*3/uL (0.90-5.00); Lymphocytes % (A) 17.6 %; MCH 27.9 pg (27.0-32.0); MCHC 33.7 g/dL (32.0-37.0); MCV 82.7 fL (80.0-97.0); Mean Platelet Volume 9.3 fL (9.5-12.2); Monocytes % (A) 9.9 %; Neutrophils # (A) 5.08 10*3/uL (1.80-7.70); Neutrophils % (A) 72.3 %; Platelet Count 249 10*3/uL (140-440); RBC 5.49 10*6/uL (4.10-5.20); WBC 7.04 10*3/uL (4.50-10.00)
[2024-09-09 15:52] LABS: Partial Thromboplastin Time 26.2 sec (22.0-30.0); Prothrombin Time 11.3 sec (10.0-12.5)
[2024-09-09 15:53] LABS: ALT 17 U/L (4-34); AST 21 U/L (14-36); African American GFR (CKD) >90 (>60 ml/min/1.73 sqM); Albumin 4.3 g/dL (3.5-5.0); Alkaline Phosphatase 138 U/L (38-126); Anion Gap 9 mmol/L; Blood Urea Nitrogen 10 mg/dL (7-17); Calcium 10.5 mg/dL (8.4-10.2); Carbon Dioxide 22 mmol/L (22-30); Chloride 108 mmol/L (98-107); Glucose 108 mg/dL (74-99); Non-African American GFR(CKD) 85 (>60 ml/min/1.73 sqM); Potassium 3.8 mmol/L (3.5-5.1); Sodium 139 mmol/L (137-145); Total Bilirubin 0.6 mg/dL (0.2-1.3); Total Protein 7.9 g/dL (6.3-8.2)
[2024-09-09 16:18] LABS: Influenza A Not Detected (Not Detectd); Influenza B Not Detected (Not Detectd); RSV Not Detected (Not Detectd)
--- NOTE | 2024-09-09 16:24 | ED ---
General Adult HPI - General Chief complaint: Dizziness Stated complaint: SOB/Dizziness Time Seen by Provider: 09/09/24 14:55 Source: patient, family, RN notes reviewed, old records reviewed Mode of arrival: wheelchair - History of Present Illness Initial comments: Patient is a 79-year-old female presents emergency department for vertigo symptoms. States has been present for the last 3 days. Has a history of chronic sinus congestion which has been worse over the last 2 weeks or so. Endorses rhinorrhea. Denies cough. Has history of chronic ear issues as well. Has noticed that vertigo is worse when moving her head as well as with standing. Improved when laying down flat. States is a room spinning sensation. Is currently not having any treatment for her sinus infection. Presents for further evaluation at this time. Has no other symptoms.Denies headache, denies blurry vision. - Related Data Home Medications Medication Instructions Recorded Confirmed Albuterol Sulfate [Albuterol 2 puff PO RT-Q4H PRN 06/17/21 06/17/21 Sulfate Hfa] HYDROcodone/APAP 10-325MG [[place] 1 tab PO BID PRN 06/17/21 06/17/21 10-325] Previous Rx's Medication Instructions Recorded Nicotine 21Mg/24Hr Patch [Habitrol] 1 patch TRANSDERM DAILY #14 patch 06/18/21 Omeprazole [PriLOSEC] 40 mg PO BID #60 cap 06/18/21 Doxycycline Hyclate 100 mg PO BID 7 Days #14 tab 09/09/24 Meclizine [Antivert] 25 mg PO TID PRN 5 Days #15 tab 09/09/24 predniSONE 10 mg PO DAILY 4 Days #4 tab 09/09/24 Allergies Allergy/AdvReac Type Severity Reaction Status Date / Time No Known Allergies Allergy Verified 09/09/24 14:33 Review of Systems ROS Statement: Those systems with pertinent positive or pertinent negative responses have been documented in the HPI. Review of Systems: CONST: Denies fever EYES: Denies blurry vision ENT: Denies nasal congestion C/V: Denies Chest pain RESP: Denies shortness of breath GI: Denies abdominal pain : Denies dysuria SKIN: Denies rash. MSK: Denies joint pain. NEURO: Endorses vertigo ROS Other: All systems not noted in ROS Statement are negative. Past Medical History Past Medical History: Asthma, Coronary Artery Disease (CAD), Cancer, COPD, GERD/Reflux, Hearing Disorder / Deafness, Hyperlipidemia, Hypertension, Osteoarthritis (OA), Pneumonia, Skin Disorder Additional Past Medical History / Comment(s): Emphysema, bronchitis, cervical cancer with surgery, arthritis in multiple joints, chronic low back pain, bilateral tinnitis, eczema, seasonal allergies. History of Any Multi-Drug Resistant Organisms: None Reported Past Surgical History: Heart Catheterization, Hysterectomy, Orthopedic Surgery Additional Past Surgical History / Comment(s): PTCA in 1997 at [facility], R ankle arthroscopic surgery, colonoscopies, bilateral cataract removals/lens implants and L eye was unsuccessful Past Anesthesia/Blood Transfusion Reactions: No Reported Reaction Past Psychological History: Depression Smoking Status: Current every day smoker Past Alcohol Use History: None Reported Past Drug Use History: None Reported, Marijuana - Past Family History Father Family Medical History: Cancer Additional Family Medical History / Comment(s): Prostate cancer Mother Family Medical History: CVA/TIA, Vascular Disorder General Exam - General Exam Comments Initial Comments: General: Appears in no acute distress. HEAD: Normal with no signs of head trauma. EYES: PERRLA, EOMI, conjunctiva normal, no discharge. Pupils are 3 mm and equal bilaterally. ENT: Hearing grossly intact, normal oropharynx. RESPIRATORY: Clear breath sounds bilaterally. No wheezes, rales, or rhonchi. C/V: Regular rate and rhythm. S1 and S2 auscultated, no edema, peripheral pulses 2+ and intact throughout ABD: Abd is soft, nontender, nondistended EXT: Normal range of motion, no obvious deformity SKIN: No rashes or lesions observed on exposed skin. NEURO: Alert and oriented x 4. Cranial nerves II through XII are intact. No obvious focal sensory or strength deficits. NIH is 0. Normal [id number] testing and [id number] testing. Course Vital Signs 09/09/24 09/09/24 14:29 18:56 Temperature 97.8 F Pulse Rate 99 107 H Respiratory 18 16 Rate Blood Pressure 140/92 139/99 O2 Sat by Pulse 98 97 Oximetry Medical Decision Making - Medical Decision Making Was pt. sent in by a medical professional or institution (, PA, COMPOSITE LAYUP WORKER, urgent care, hospital, or halfway...) When possible be specific @ -No Did you speak to anyone other than the patient for history (EMS, parent, family, police, friend...)? What history was obtained from this source @ -Patient's daughters present with the patient and assist with past medical history. Did you review nursing and triage notes (agree or disagree)? Why? @ -I reviewed and agree with nursing and triage notes Were old charts reviewed (outside hosp., previous admission, EMS record, old EKG, old radiological studies, urgent care reports/EKG's, halfway records)? Report findings @ -Reviewed MRI brain and orbits from November 2023 which showed nonspecific findings of the brain without any obvious CVA. He had a remote left medial orbital wall fracture as well. Differential Diagnosis (chest pain, altered mental status, abdominal pain women, abdominal pain men, vaginal bleeding, weakness, fever, dyspnea, syncope, headache, dizziness, GI bleed, back pain, seizure, CVA, palpatations, mental health, musculoskeletal)? @ -Differential Dizziness: Benign paroxysmal positional Vertigo, Meniere's disease, otitis media, acoustic neuroma, vertebrobasilar insufficiency, cerebellar stroke, encephalitis, hypovolemic, arrhythmia, coronary artery syndrome, anemia, this is not meant to be an all-inclusive list EKG interpreted by me (3pts min.). @ -As above X-rays interpreted by me (1pt min.). @ -Chest x-ray shows no obvious acute cardiopulmonary process. CT interpreted by me (1pt min.). @ - CT brain reveals no obvious acute intracranial process. CT angiogram head and neck reveals no obvious acute vessel occlusion or acute process. U/S interpreted by me (1pt. min.). @ -None done What testing was considered but not performed or refused? (CT, X-rays, U/S, labs)? Why? @ -None What meds were considered but not given or refused? Why? @ -None Did you discuss the management of the patient with other professionals (professionals i.e. , PA, COMPOSITE LAYUP WORKER, lab, RT, psych nurse, social science teacher, staff trainer, teacher, placement officer, medical case worker)? Give summary @ -No Was smoking cessation discussed for >3mins.? @ -No Was critical care preformed (if so, how long)? @ -No Were there social determinants of health that impacted care today? How? (Homelessness, low income, unemployed, alcoholism, drug addiction, transport ation, low edu. Level, literacy, decrease access to med. care, assisted, rehab)? @ -No Was there de-escalation of care discussed even if they declined (Discuss DNR or withdrawal of care, Hospice)? DNR status @ -No What co-morbidities impacted this encounter? (DM, HTN, Smoking, COPD, CAD, Cancer, CVA, ARF, Chemo, Hep., AIDS, mental health diagnosis, sleep apnea, morbid obesity)? @ -None Was patient admitted / discharged? Hospital course, mention meds given and route, prescriptions, significant lab abnormalities, going to OR and other pertinent info. @ -Patient presents with worsening sinus congestion for approximately 2 weeks with or longer that has been worse than her baseline, as well as vertigo for the last 3 days. Worse with certain movements. NIH is 0. I did discuss with the patient, and we opted to obtain CT imaging to evaluate for possible stroke as we obtain further workup. This includes EKG, labs. Patient will be administered IV fluids, Zofran, IV Solu-Medrol, as well as meclizine. Patient was in agreement this plan. Patient has isolated vertigo symptoms and is therefore not a candidate for tenecteplase as NIH is 0 and risks far outweigh the benefits. Symptoms have been ongoing for multiple days. EKG shows no signs of ischemia.Imaging negative for any obvious acute process. Laboratory studies are all within acceptable limits. I discussed the workup with the patient. Meclizine has improved her symptoms and she is able to sit up and ambulate at her baseline. The steroid made her feel somewhat jittery. I discussed her workup. Vertigo has resolved. I bel ieve it is safer to be discharged home and I do believe that her sinusitis is likely contributing to her vertiginous symptoms. As she has had greater than 14 days of sinusitis symptoms, I will treat with antibiotics as well as steroids for home. She will also be given a prescription for meclizine. She was in agreement this plan. Started on doxycycline prior to discharge. Strict return precautions discussed. I will provide the patient with a prescription for doxycycline, prednisone, meclizine. I instructed the patient to follow up with their PCP in the next 1-3 days. I provided contact information for follow up with ENT. I explained that the patient should return to the emergency department if they experience any worsening symptoms. Strict return precautions were discussed with the patient. The patient expressed understanding of these instructions. I answered all questions that the patient had. The patient was discharged home in good condition with their prescriptions and follow up information. Undiagnosed new problem with uncertain prognosis? @ -No Drug Therapy requiring intensive monitoring for toxicity (Heparin, Nitro, Insulin, Cardizem)? @ -No Were any procedures done? @ -No Diagnosis/symptom? @ -Sinusitis, vertigo Acute, or Chronic, or Acute on Chronic? @ -Acute Uncomplicated (without systemic symptoms) or Complicated (systemic symptoms)? @ -Complicated Side effects of treatment? @ -None Exacerbation, Progression, or Severe Exacerbation] @ -No Poses a threat to life or bodily function? @ -Unlikely at this time - Lab Data Result diagrams: 09/09/24 15:06 09/09/24 15:06 Lab Results 09/09/24 09/09/24 09/09/24 Range/Units 15:06 15:06 15:06 WBC 7.04 (4.50-10.00) 10*3/uL RBC 5.49 H (4.10-5.20) 10*6/uL Hgb 15.3 H (12.0-15.0) g/dL Hct 45.4 (37.2-46.3) % MCV 82.7 (80.0-97.0) fL MCH 27.9 (27.0-32.0) pg MCHC 33.7 (32.0-37.0) g/dL Plt Count 249 (140-440) 10*3/uL MPV 9.3 L (9.5-12.2) fL Immature Gran % (Auto) 0.1 % Neutrophils % 72.3 % Lymphocytes % 17.6 % Monocytes % 9.9 % Eosinophils % 0.0 % Basophils % 0.1 % Immature Gran # 0.01 (0.00-0.04) 10*3/uL Neutrophils # 5.08 (1.80-7.70) 10*3/uL Lymphocytes # 1.24 (0.90-5.00) 10*3/uL Monocytes # 0.70 (0.20-1.00) 10*3/uL Eosinophils # 0.00 L (0.04-0.35) 10*3/uL Basophils # 0.01 (0.00-0.10) 10*3/uL PT 11.3 (10.0-12.5) sec INR 1.0 (<1.2) APTT 26.2 (22.0-30.0) sec Sodium 139 (137-145) mmol/L Potassium 3.8 (3.5-5.1) mmol/L Chloride 108 H (98-107) mmol/L Carbon Dioxide 22 (22-30) mmol/L Anion Gap 9 mmol/L BUN 10 (7-17) mg/dL Creatinine 0.68 (0.52-1.04) mg/dL Est GFR (CKD-EPI)AfAm >90 (>60 ml/min/1.73 sqM) Est GFR (CKD-EPI)NonAf 85 (>60 ml/min/1.73 sqM) Glucose 108 H (74-99) mg/dL Calcium 10.5 H (8.4-10.2) mg/dL Magnesium 2.0 (1.6-2.3) mg/dL Total Bilirubin 0.6 (0.2-1.3) mg/dL AST 21 (14-36) U/L ALT 17 (4-34) U/L Alkaline Phosphatase 138 H (38-126) U/L Total Protein 7.9 (6.3-8.2) g/dL Albumin 4.3 (3.5-5.0) g/dL Urine Color Urine Appearance (Clear) Urine pH (5.0-8.0) Ur Specific [place] (1.001-1.035) Urine Protein (Negative) Urine Glucose (UA) (Negative) Urine Ketones (Negative) Urine Blood (Negative) Urine Nitrite (Negative) Urine Bilirubin (Negative) Urine Urobilinogen (<2.0) mg/dL Ur Leukocyte Esterase (Negative) Influenza Type A (PCR) (Not Detectd) Influenza Type B (PCR) (Not Detectd) RSV (PCR) (Not Detectd) SARS-CoV-2 (PCR) (Not Detectd) 09/09/24 09/09/24 Range/Units 15:14 17:00 WBC (4.50-10.00) 10*3/uL RBC (4.10-5.20) 10*6/uL Hgb (12.0-15.0) g/dL Hct (37.2-46.3) % MCV (80.0-97.0) fL MCH (27.0-32.0) pg MCHC (32.0-37.0) g/dL Plt Count (140-440) 10*3/uL MPV (9.5-12.2) fL Immature Gran % (Auto) % Neutrophils % % Lymphocytes % % Monocytes % % Eosinophils % % Basophils % % Immature Gran # (0.00-0.04) 10*3/uL Neutrophils # (1.80-7.70) 10*3/uL Lymphocytes # (0.90-5.00) 10*3/uL Monocytes # (0.20-1.00) 10*3/uL Eosinophils # (0.04-0.35) 10*3/uL Basophils # (0.00-0.10) 10*3/uL PT (10.0-12.5) sec INR (<1.2) APTT (22.0-30.0) sec Sodium (137-145) mmol/L Potassium (3.5-5.1) mmol/L Chloride (98-107) mmol/L Carbon Dioxide (22-30) mmol/L Anion Gap mmol/L BUN (7-17) mg/dL Creatinine (0.52-1.04) mg/dL Est GFR (CKD-EPI)AfAm (>60 ml/min/1.73 sqM) Est GFR (CKD-EPI)NonAf (>60 ml/min/1.73 sqM) Glucose (74-99) mg/dL Calcium (8.4-10.2) mg/dL Magnesium (1.6-2.3) mg/dL Total Bilirubin (0.2-1.3) mg/dL AST (14-36) U/L ALT (4-34) U/L Alkaline Phosphatase (38-126) U/L Total Protein (6.3-8.2) g/dL Albumin (3.5-5.0) g/dL Urine Color Colorless Urine Appearance Clear (Clear) Urine pH 6.5 (5.0-8.0) Ur Specific [place] 1.019 (1.001-1.035) Urine Protein Negative (Negative) Urine Glucose (UA) Negative (Negative) Urine Ketones Negative (Negative) Urine Blood Negative (Negative) Urine Nitrite Negative (Negative) Urine Bilirubin Negative (Negative) Urine Urobilinogen <2.0 (<2.0) mg/dL Ur Leukocyte Esterase Negative (Negative) Influenza Type A (PCR) Not Detected (Not Detectd) Influenza Type B (PCR) Not Detected (Not Detectd) RSV (PCR) Not Detected (Not Detectd) SARS-CoV-2 (PCR) Not Detected (Not Detectd) - EKG Data -: EKG Interpreted by Me EKG Comments: 12-lead Electrocardiogram Interpretation Note EKG was reviewed and interpreted by myself. 12-lead ECG performed at 1443 is interpreted by me as revealing normal sinus rhythm at a rate of 108 beats per minute. [place] is normal. QRS durations 94 ms, QTc is 394 ms.. There were no ST or T wave abnormalities to suggest myocardial ischemia or injury. R wave progression across the precordium was satisfactory. By my interpretation this EKG is non-diagnostic for acute ischemia. Machine interpreted as atrial fibrillation with RVR however it appears to be a normal sinus rhythm there is a P wave with every QRS complex throughout. Very regular. No obvious irregularity. Disposition Clinical Impression: Vertigo, Sinus infection Disposition: HOME SELF-CARE Condition: Good Instructions (If sedation given, give patient instructions): Sinusitis (ED), Vertigo (ED) Prescriptions: Meclizine [Antivert] 25 mg PO TID PRN 5 Days #15 tab PRN Reason: Pain Doxycycline Hyclate 100 mg PO BID 7 Days #14 tab predniSONE 10 mg PO DAILY 4 Days #4 tab Is patient prescribed a controlled substance at d/c from ED?: No Referrals: Rc Fung DO [Primary Care Provider] - 1-2 days Landon Zhu MD [STAFF PHYSICIAN] - 1-2 days Time of Disposition: 18:35
--- NOTE | 2024-09-09 17:07 | XR ---
EXAMINATION TYPE: XR chest 2V DATE OF EXAM: 09/09/2024 4:28 PM COMPARISON: Chest radiographs from 10/12/2023. CLINICAL INDICATION: Female, 79 years old with history of cough; TECHNIQUE: XR chest 2V Frontal and lateral views of the chest. FINDINGS: Lungs/Pleura: There is no evidence of pleural effusion, focal consolidation, or pneumothorax. Pulmonary vascularity: Unremarkable. Heart/mediastinum: Cardiomediastinal silhouette is unremarkable. Musculoskeletal: No acute osseous pathology. IMPRESSION: No acute cardiopulmonary disease/process. [facility], , 09/09/2024 5:05 PM
--- NOTE | 2024-09-09 17:07 | CT ---
EXAMINATION TYPE: CT brain wo con DATE OF EXAM: 09/09/2024 4:26 PM COMPARISON: 10/12/2023. CLINICAL INDICATION: Female, 79 years old with history of vertigo, Vertigo, sinusitis x 3-4 days TECHNIQUE: Brain: Axial CT images of the brain were obtained with coronal and sagittal reformats created and rev iewed. Contrast used: None. Oral contrast used: None. CT DLP: combined 1719.4 mGycm, Automated exposure control for dose reduction was used. FINDINGS: Brain: Extra-axial spaces: No abnormal extra-axial fluid collections. Ventricular system: Within normal limits Cerebral parenchyma: No acute intraparenchymal hemorrhage or mass effect. The baxter-white junction is well differentiated. Cerebellum: Unremarkable. Mass effect: No evidence of midline shift. Intracranial vasculature: unremarkable Soft tissues: Normal. Calvarium/osseous structures: No depressed skull fracture. Paranasal sinuses and mastoid air cells: Mild scattered paranasal sinus disease. Visualized orbits: Orbital contents are intact. IMPRESSION: No acute intracranial process. [facility], , 09/09/2024 5:04 PM
[2024-09-09 17:42] LABS: Appearance,Urine Clear (Clear); Bilirubin,Urine Negative (Negative); Blood,Urine Negative (Negative); Color,Urine Colorless; Glucose,Urine (UA) Negative (Negative); Ketones,Urine Negative (Negative); Leukocyte Esterase,Urine Negative (Negative); Nitrite,Urine Negative (Negative); PH, Urine 6.5 (5.0-8.0); Protein,Urine Negative (Negative); Specific Gravity,Urine 1.019 (1.001-1.035); Urobilinogen,Urine <2.0 mg/dL (<2.0)
--- NOTE | 2024-09-09 17:50 | CT ---
EXAMINATION TYPE: CT angio head neck DATE OF EXAM: 09/09/2024 4:38 PM COMPARISON: 09/09/2024. CLINICAL INDICATION: Female, 79 years old with history of vertigo; PHH, Vertigo, sinusitis x 3-4 days TECHNIQUE: Axially acquired helical CT angiogram of the head and neck was obtained with contrast. Axi al images are supplemented with 3D reconstructions and MIP images which were post-processed at an in dependent workstation. NASCET criteria used. Contrast used:65 mL of Isovue 370 without and with IV Contrast, Oral contrast used: None. CT DLP: combined 1719.4 mGycm, Automated exposure control for dose reduction was used. FINDINGS: CTA HEAD: No evidence of acute intracranial hemorrhage, mass effect, or midline shift. The ventricles, sulci, a nd cisterns are unremarkable. Bilaterally aphakia. Calcified tonsil stones bilaterally in the palatin e tonsils. Vertebral arteries: The vertebral arteries are patent. Vertebral artery dominance: Codominant Basilar artery: The basilar artery is intact. The basilar artery bifurcation is normal. Internal Carotid arteries: The cervical, petrous, cavernous and supraclinoid segments are normal. LUCINA: Patent with no evidence of aneurysm. ACOM: Present without evidence of aneurysm. MCA: Patent with no evidence of aneurysm. ADMISSIONS COUNSELOR: Patent with no evidence of aneurysm. PCOM: Hypoplastic bilaterally. Dural sinuses: Patent. CTA NECK: Right Carotid System: The common carotid artery and external carotid artery are patent. The carotid bifurcation demonstrate s no evidence of hemodynamically significant stenosis. The remaining portions of the internal carotid artery demonstrate normal size without significant narrowing. Left Carotid System: The common carotid and external carotid arteries are patent. There is less than 25% stenosis at the c arotid bifurcation secondary to calcified plaque. The rest of the internal carotid artery is patent. Vertebral arteries are patent without evidence hemodynamically significant stenosis. There is a three-vessel aortic arch. The origins of the great vessels are patent. No evidence of hemo dynamically significant stenosis. Mild centrilobular and paraseptal emphysematous IMPRESSION: 1. No evidence of dissection of the cervical internal carotid arteries or vertebral arteries. 2. No any evidence of significant stenosis at the carotid bifurcations. 3. No evidence of intracranial high-grade stenosis or intracranial aneurysm. [facility], , 09/09/2024 5:48 PM
[2024-09-09] MEDS: DOXYCYCLINE 100 MG TABLET PO ONE (19:10)
[2024-09-09 19:16] VITALS: BP 139/99; PULSE 107; RESP 16
== END 2024-09-09 19:16 | disposition home or self-care (01) ==
LOC: EC 14:17
DX: R42 Dizziness and giddiness (principal); J32.9 Chronic sinusitis, unspecified; F17.200 Nicotine dependence, unspecified, uncomplicated
CPT/HCPCS: 36415; 93005; 80053; 83735; 85025; 85610; 85730; 81003; 87636; 71046; 70496; 70450; 70498; 99284; 96374; 96375; 96361; J2405; Q9967; J2919